=== PATIENT | female | born 1950 | race Caucasian/White ===

== ENCOUNTER → 2016-06-27 | Outpatient (CLI) | payer OTHER ==
[~2016-06-27] VITALS: Ht 170.2 cm; Wt 63.6 kg
[~2016-06-27] MED LIST: ADULT LOW DOSE81 MG PO; CALCIUM; CYMBALTA60 MG PO; HYDROCODON-ACE1 EAC8 PO; HYDROCODONE-AP1 EA11 PO; IBUPROFEN 200200 M1 PO; LO-DOSE ASPIRIN81 M1 PO; MOBIC15 MG PO; MULTIVITAMINS; NORCO 10-325 T1 EACH PO; NORCO 7.5-3251 EACH PO; PERCOCET 10-321 EAC1 PO; RED YEAST RICE600 MG PO; TIZANIDINE HCL 22 M1 PO; VITAMIN D1000 UNI1; VITAMIN E400 UNIT PO; VITCB500GO; XANAX 0.5 MG0.5 M1 PO; ZANAFLEX4 MG PO
--- NOTE | ~2016-06-27 | HPC ---
[facility] [place] [address] PAIN MANAGEMENT CONSULTATION Name: YANIRA PRAJAPATI Room #: REG KENY Robert.#: [id number] Admission: 06/27/16 Attend Phys: Junior No DO Discharge: Date of : 51 Report #: [id number] THIS REPORT FOR: //name// CC: Byron No HISTORY OF PRESENT ILLNESS: The patient is a 65-year-old female seen about 3 weeks ago, 06/06/2016. She has severe stenosis at L3-L4, related anterolisthesis at L4-L5, has degenerative changes and unfortunately she has a fairly large posterior right focal disc at L5-S1. This seems to be causing significant problems with acute exacerbation of radicular symptoms. The patient has an appointment to see Dr. Eduard Crenshaw at the end of this month. I had rotated from hydrocodone 7.5/325 taking two tablets b.i.d. to Percocet 10/325. The patient returns to pain clinic today noting this is really not efficacious. She is having insomnia and ongoing pain with this medication. She rates the pain at 10/10 primarily right leg, posterior aspect down to the foot. PHYSICAL EXAMINATION: Unchanged from last visit. A 65-year-old female, BMI is 22 kilograms per meter squared. Vital signs stable. Modestly antalgic gait, diffuse tenderness across the low back, posterior aspect of the right leg. Positive straight leg raise on the right with slight decreased plantar flexion strength. DIAGNOSTIC STUDIES: As noted above. ASSESSMENT: Symptomatic lumbar radiculopathy, acute exacerbation of radicular symptoms, history of cervical radiculopathy requiring complex medication management. RECOMMENDATIONS: We will rotate back to hydrocodone, use a 10/325 product, mandate only one tablet q. 4 hours as needed for pain. I have also taken the liberty of starting the patient on Lyrica 75 mg at bedtime, titrating up 125 mg bedtime and then adding 50 mg in morning with a target dose of 50 mg in the morning and 150 at night. Sample will be given to the patient sufficient to last this next 3-4 weeks. I will see her back at the end of the month. We will review consult from Dr. Crenshaw in consideration for therapeutic interventions. The patient was seen for moderately prolonged visit, recognizing significant medical concerns with complicated medication management. She was seen for approximately 25 minutes in total, 50% of this time was spent counseling the patient. <ELECTRONICALLY SIGNED> By: Junior No DO 07/01/16 0917 1703 [id number] Junior No DO /nt
[2016-06-27 14:23] VITALS: BP 110/61
== END ==
LOC: PAIN 07:21
DX: M54.16 Radiculopathy, lumbar region (principal); M48.06 Spinal stenosis, lumbar region; Z87.891 Personal history of nicotine dependence

== ENCOUNTER → 2017-02-06 | Outpatient (CLI) | payer OTHER ==
[~2017-02-06] VITALS: Ht 170.2 cm; Wt 66.5 kg
--- NOTE | ~2017-02-06 | HPC ---
[facility] [place] [address] PAIN MANAGEMENT CONSULTATION Name: YANIRA PRAJAPATI Room #: REG KENY JoaquinRadhaDonell#: [id number] Admission: 02/06/17 Attend Phys: Junior No DO Discharge: Date of : 51 Report #: [id number] THIS REPORT FOR: //name// CC: Byron No The patient is a very pleasant 66-year-old female. She had been seen for symptomatic lumbar radiculopathy, last seen 06/27/2016. We did a single injection at that time, wrote for hydrocodone and referred the patient to Dr. Eduard Crenshaw. She had a decompressive laminectomy July [address] [facility], unfortunately I can find no medical records of the same. The patient has expressed her similar frustration at lack of communication with records, etc. Nonetheless, she presents to the pain clinic today noting surgery was vastly successful. She had a significant improved range of motion. Right leg shows only nominal decreased hip flexion strength, range of motion is very good. Rates her pain as 6 on a VAS, but she is very tolerant with this. She notes pain is chronic in the right side with some cramping, but overall feels she is significantly more functional. She is weaned off of all opiate analgesics, does use tizanidine for some spasm, has stopped taking Meloxicam as well. PHYSICAL EXAMINATION: GENERAL: Shows 66-year-old female, BMI is 23 kilograms per meter squared. VITAL SIGNS: Stable. NEUROLOGIC: Alert and oriented to person, place and time, judged to be a reasonable historian. EXTREMITIES: Rises from chair easily. Gait is tandem. Lumbar flexion is good. Slight decreased right hip flexion, lower extremity extension strength, some diffuse tenderness in the low back. No discrete trigger was noted. ASSESSMENT: Symptomatic lumbar radiculopathy, now status post decompressive laminectomy, component of some myofascial pain and muscle spasm. RECOMMENDATION: 1. Continue range of motion course therapy and exercises. 2. I will write provide a prescription to the patient for tizanidine 4 mg to have 1-1/2 to one tablet 3 times a day as needed for spasm, dispense 75 tablets, 1 refill. Followup simply as needed. Thank you for allowing me to participate in the patient's care. We did spend a prolonged visit today primarily spent reviewing interval therapy and trying to peace together her surgical history. Unfortunately, again I got online to try and get Darnell's dictation, but I could not find it. I did text Dr. Eduard Crenshaw's nurse practitioner who has agreed to have the office faxed to us the surgical notes, which will at least be on the chart. [address] [address] PAIN MANAGEMENT CONSULTATION Name: YANIRA PRAJAPATI CHEO Room #: REG CL Kamini#: [id number] Admission: 02/06/17 Attend Phys: Junior No DO Discharge: Date of : 51 Report #: [id number] Discharged in good stable condition after approximately 25 minute visit spent reviewing interval medical history, physical exam, and counseling the patient. <ELECTRONICALLY SIGNED> By: Junior No DO 02/07/17 1225 1211 2039 Junior No DO /nt
[2017-02-06 09:55] VITALS: BP 124/80
== END ==
LOC: PAIN 06:54
DX: M54.16 Radiculopathy, lumbar region (principal); M62.838 Other muscle spasm

== ENCOUNTER → 2017-12-18 | Outpatient (CLI) | payer OTHER ==
[~2017-12-18] VITALS: Ht 170.2 cm; Wt 69.1 kg
[~2017-12-18] MED LIST changes: +AMOXICILLIN 50500 MG PO
--- NOTE | ~2017-12-18 | HPC ---
[facility] [place] [address] PAIN MANAGEMENT CONSULTATION Name: YANIRA PRAJAPATI Room #: REG KENY Jones.#: [id number] Admission: 12/18/17 Attend Phys: Junior No DO Discharge: Date of : 51 Report #: [id number] THIS REPORT FOR: //name// CC: Physician staff UDAY No The patient is a very pleasant 67-year-old female, prior treated for SI mediated pain and lumbar radiculopathy status post decompressive laminectomy. Last seen in pain clinic on 02/06/2017. At that time, the patient was doing a little bit better. She had a decompressive laminectomy in 07/2016. Radicular symptoms had improved. Somewhat lost to follow up. She returns to pain clinic today noting that new complaint of axial back pain has occurred without specific antecedent trauma and overuse. She rates it as a 6-7 on a VAS in the right hip, posterior buttock, exacerbated with standing, walking and bending. She has tried a Medrol Dosepak with only transient improvement of symptoms. Tizanidine, Meloxicam afforded some relief. She denies any radicular or myelopathic symptoms. PHYSICAL EXAMINATION: Shows a 67-year-old female, BMI is 23.9 kilograms per meter squared. Vital signs stable as noted in the ER on the electronic medical record. She is alert and oriented to person, place and time, judged to be a reasonable historian. Rises from chair using armrest, modestly antalgic gait. Very tender over the right SI joint. Lower extremity strength is symmetric. Straight leg raise is negative. Grossly positive Elvis test on the right. Positive Gaenslen test, positive pelvic distraction. ASSESSMENT: Symptomatic right sacroiliac joint dysfunction by clinical exam and history in a patient status post lumbar decompressive laminectomy. RECOMMENDATION: 1. Continue tizanidine and Meloxicam. She has only required prescription for tizanidine today. 2. Right SI joint injection under fluoroscopy. 3. Continue core strengthening. Follow up as needed. PROCEDURE: Right SI joint injection under fluoroscopy. PROCEDURE NOTE: After written informed consent was obtained, the patient was taken to fluoroscopy suite, placed in prone position. After sterile prep and drape, skin wheal was raised. A 22-gauge stylet needle was placed to contact the inferior aspect of the right SI joint. Negative aspiration was accomplished. 1 mL of Omnipaque was injected, which showed spread within the joints, followed with 40 mg triamcinolone, plus 2 mL of 0.5% preservative-free bupivacaine. Needle was removed. The area was cleansed, Band-Aid was applied. [address] [address] PAIN MANAGEMENT CONSULTATION Name: YANIRA PRAJAPATI Room #: REG KENY Suárez#: [id number] Admission: 12/18/17 Attend Phys: Junior No DO Discharge: Date of : 51 Report #: [id number] Fluoroscopy time was under 10 seconds. The patient was monitored for an appropriate period of time, discharged in good and stable condition. <ELECTRONICALLY SIGNED> By: Junior No DO 12/19/17 0715 1135 1518 Junior No DO /nt
[2017-12-18 09:49] VITALS: BP 117/85
== END ==
LOC: PAIN 07:05
DX: M53.3 Sacrococcygeal disorders, not elsewhere classified (principal); G89.29 Other chronic pain; M54.16 Radiculopathy, lumbar region; Z79.891 Long term (current) use of opiate analgesic; Z98.890 Other specified postprocedural states; Z79.899 Other long term (current) drug therapy; Z79.82 Long term (current) use of aspirin

== ENCOUNTER → 2017-12-25 | Outpatient (CLI) | payer OTHER ==
[~2017-12-25] VITALS: Ht 170.2 cm; Wt 67.3 kg
--- NOTE | ~2017-12-25 | HPC ---
[facility] [address] [place] [address] PAIN MANAGEMENT CONSULTATION Name: YANIRA PRAAJPATI Room #: REG KENY Robert.#: [id number] Admission: 12/25/17 Attend Phys: Junior No DO Discharge: Date of : 51 Report #: [id number] THIS REPORT FOR: //name// CC: Physician staff UDAY No The patient is a very pleasant 67-year-old female. She had been treated for symptomatic lumbar radiculopathy, status post 07/2016 L5-S1 hemilaminectomy. She has had a component of cervical spondylosis without myelopathy and axial back pain. We did a right SI joint injection at last visit (12/19/2015), with overall good improvement of the right low back pain. Unfortunately, she still has ongoing right L5 radicular pain. She notes she has been having a spasm in the right calf and foot which is actually waking her from sleep. PHYSICAL EXAMINATION: Shows a pleasant 67-year-old female, appearing younger than stated age. BMI is 23.2 kilograms per meter squared. Vital signs are stable as noted in the EMR. Rises from chair using armrest, modestly antalgic gait, positive straight leg raise on the right, negative Homans. Well-healed surgical scar compatible with prior surgery. ASSESSMENT: Symptomatic lumbar radiculopathy status post decompressive laminectomy with new right L5 radicular pain pattern. RECOMMENDATION: Right L5-S1 transforaminal epidural injection under fluoroscopy today, continue baseline medication including tizanidine for spasm, Meloxicam 15 mg 1 a day. PROCEDURE: Right L5-S1 transforaminal epidural injection under fluoroscopy. PROCEDURE NOTE: After both written and informed consent was obtained including risk of spinal cord damage, infection, increased pain and paralysis, the patient agreed to proceed. The patient was taken to the fluoroscopy suite, placed in a prone position with appropriate abdominal bolstering. After sterile prep with ChloraPrep and sterile drape, a skin wheal with 1% Xylocaine was raised. A 22 gauge 4-1/2 inch epidural Tuohy needle was inserted. From an oblique approach into the posterior-superior aspect of the right L5-S1 neural foramen with continuous pressure on the glass syringe plunger for loss of resistance. Glass syringe was filled with 2 cc of 0.1 Xylocaine. The glass loss of resistance syringe was removed. A low volume extension tubing was connected, negative aspiration was accomplished for cerebrospinal fluid or blood. 1 mL of Omnipaque was injected which showed spread both within the epidural space and laterally along the nerve root. This was followed with 80 mg of triamcinolone plus 1 mL of 1.5% preservative-free Xylocaine. Needle was partially withdrawn, 0.5 mL of Xylocaine was injected to clear the needle and the needle was removed. The [address] [address] PAIN MANAGEMENT CONSULTATION Name: YANIRA PRAJAPATI CHEO Room #: REG [facility] Robert.#: [id number] Admission: 12/25/17 Attend Phys: Junior No DO Discharge: Date of : 51 Report #: [id number] was cleansed, band-aid was applied. The patient was allowed to ambulate to the recovery room, discharged in good and stable condition. <ELECTRONICALLY SIGNED> By: Junior No DO 12/26/17 0829 1537 1817 Junior No DO /nt
[2017-12-25 12:42] VITALS: BP 132/80
== END | disposition home or self-care (01) ==
LOC: PAIN 08:30
DX: M54.16 Radiculopathy, lumbar region (principal); Z98.890 Other specified postprocedural states; Z87.891 Personal history of nicotine dependence

== ENCOUNTER → 2018-01-27 | Outpatient (CLI) | payer OTHER ==
[~2018-01-27] VITALS: Ht 170.2 cm; Wt 67.6 kg
--- NOTE | ~2018-01-27 | HPC ---
[facility] [place] [address] PAIN MANAGEMENT CONSULTATION Name: YANIRA PRAJAPATI Room #: REG KENY Jones.#: [id number] Admission: 01/27/18 Attend Phys: Mihai No DO Discharge: Date of : 51 Report #: [id number] THIS REPORT FOR: //name// CC: Mihai No Physician staff UDAY Bagley DATE OF SERVICE: 01/27/2018 REFERRING PHYSICIAN: Uday Bagley CHIEF COMPLAINT: Low back pain, left lower extremity pain and paresthesias. HISTORY OF PRESENT ILLNESS: As you know, the patient is a very pleasant 67-year-old female who has returned today in followup visit with pain levels of 0/10. States the pain is chronic in sensation. Describes pain as cramping and intermittent in its presentation. She states her pain spontaneously exacerbates typically when working out and crossing her legs, improves with medications, stretching, repositioning, Biofreeze and epidural injections. She was last seen in our clinic on 12/18/2017 and then again on 12/25/2017 where she underwent a right L5-S1 transforaminal epidural injection. She reports some improvement in symptoms. She states she had an acute exacerbation of symptoms that occurred last week, but has now resolved. Her pain is now at level 0/10. She states she has changed no medications, had no treatments, just spontaneous resolution. She returns today to discuss treatment options if her pain does return. ALLERGIES: No known drug allergies. CURRENT MEDICATIONS: Tizanidine 4 mg q. 8 hours p.r.n., red yeast rice extract 600 mg once a day and calcium carbonate 1 tab per day. SOCIAL HISTORY: The patient denies tobacco, alcohol, IV or illicit drug use. She is unaccompanied today. IMAGING: There is no new imaging available. PHYSICAL EXAMINATION: VITAL SIGNS: Blood pressure 104/71, pulse 89, respiratory rate 14 and unlabored. The patient is 100% on room air. Height 5 feet 7 inches tall, weight 149 pounds and BMI calculated 23.3. GENERAL: Well-developed, well-nourished, well-hydrated 67-year-old female, appearing her stated age. She is placing current pain score 0/10. HEENT: Normocephalic and atraumatic. Pupils are equal, round and reactive to light. EXTREMITIES: Show no clubbing, no cyanosis and no edema. [facility] [address] [place] [address] PAIN MANAGEMENT CONSULTATION Name: YANIRA PRAJAPATI Room #: REG [facility]#: [id number] Admission: 01/27/18 Attend Phys: Mihai No DO Discharge: Date of : 51 Report #: [id number] MUSCULOSKELETAL: Seated straight leg raising is negative. Supine straight leg raising is mildly positive on the right. Elvis's test is negative. Modified Gaenslen's positive for axial low back pain. Ankle clonus is negative. Babinski is negative. Muscle bulk and tone equal and symmetrical in the lower extremities. ASSESSMENT: 1. Symptomatic lumbar radiculopathy. 2. Displacement of lumbar intervertebral disk with radiculopathy. 3. Lumbosacral spondylosis with radiculopathy. 4. Central canal stenosis of the lumbar spine. 5. Neural foraminal stenosis of the lumbar spine. 6. Facet arthropathy of the lumbar spine. 7. Chronic intractable pain. PLAN: 1. The patient returns today in followup visit indicating an acute exacerbation of symptoms that occurred last week. Unfortunately, her symptoms presented acutely and intensely. She made today's appointment to be evaluated and fortunately her symptoms have resolved. This began on Friday where she awoke with no pain. This has remained the same since that day. The patient returns today in followup visit to discuss treatment options if her pain does intensify or return. Following was discussed with the patient in regards to treatment options for lumbar radiculopathy, status post L5-S1 hemilaminectomy. We discussed physical therapy, stretching exercises and core strengthening. 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 I do not think any changes in her exercise program need to be addressed at this visit. We discussed medication management initiating neuropathic pain medications and consistent nonsteroidal anti-inflammatory, this in conjunction with her current tizanidine dosing. We discussed repeating epidural injection under fluoroscopic guidance to address pain if her symptoms do return. We also discussed a spinal cord stimulator and surgical options. The patient is amenable to all suggestions and options and will contact our clinic if her pain does return to address one of these treatment options. 2. We will see the patient back in followup visit on an as needed basis for possible next in the series of epidural injections and discuss other options as indicated above. <ELECTRONICALLY SIGNED> By: Mihai No DO 01/28/18 0838 1244 0028 Mihai No DO /nt
[2018-01-27 08:41] VITALS: BP 104/71
== END ==
LOC: PAIN 07:02
DX: M47.27 Other spondylosis with radiculopathy, lumbosacral region (principal); M51.16 Intervertebral disc disorders with radiculopathy, lumbar region; G89.4 Chronic pain syndrome; M48.062 Spinal stenosis, lumbar region with neurogenic claudication; M12.88 Other specific arthropathies, not elsewhere classified, other specified site

== ENCOUNTER → 2020-02-08 | Outpatient (CLI) | payer OTHER ==
[~2020-02-08] VITALS: Ht 167.6 cm; Wt 68.9 kg
[~2020-02-08] MED LIST changes: +TIZANIDINE4 MG/1 TA1 PO
[2020-02-08 09:50] VITALS: BP 96/66
--- NOTE | 2020-02-08 10:12 | NUR ---
Pain Clinic Assessment: 1. History of Osteoarthritis: RIGHT HIP History of Rheumatoid Arthritis: DENIES 2. Height: 5 ft. 6 in. 167.6 cm. Weight: 152.0 lb. oz. 68.947 kg. Patient's BMI: 24.5 3. Vital Signs: BP: 96/66 Pulse: 68 Resp: 14 Temp: 02 Sat: 98 ECG Mon: 4. Pain Intensity: 0-1 5. Fall Risk: Dizziness: N Needs help standing or walking: N Fallen in the last 3 months: N Fall risk comments: 6. Patient on Blood Thinner: None 7. History of Hypertension: N 8. Opioid Therapy greater than 6 weeks: N Opiate Contract Signed: 12/14/15 9. Risk Assessment Tool Provided: Opioid Risk Tool 10. Functional Assessment Tool: 11. Recreational Drug Use: Never Drug Type: Tobacco Use: Former Smoker Tobacco Type: Amount or Packs/day: How Many Years: Alcohol Use: Yes Frequency: Daily Quant: WINE
--- NOTE | 2020-02-08 14:22 | HPC ---
[facility] [place] [address] PAIN MANAGEMENT CONSULTATION Name: YANIRA PRAJPAATI Room #: REG KENY Jones.#: [id number] Admission: 02/08/20 Attend Phys: Mihai No DO Discharge: Date of : 51 Report #: [id number] THIS REPORT FOR: cc: UDAY BAGLEY MD, STACY C. MD Johnson, James E. DO ~ DATE OF SERVICE: 02/08/2020 REFERRING PHYSICIAN: Dr. Uday Bagley. CHIEF COMPLAINT: Low back pain, bilateral lower extremity pain. HISTORY OF PRESENT ILLNESS: As you know, the patient is a very pleasant 69-year-old female who has returned today in followup visit reporting pain as a 0-1/10. Apparently about 2 weeks ago, she had instantaneous increase in low back pain, bilateral lower extremity pain. The patient has plans to undergo MRI of the lumbar spine later today per the request of her PCP. She comes to us with x-ray imaging of the low back, which shows changes at the L3-L4 level, L4-L5 and L5-S1 with spondylolisthesis at L3-4 and advanced multilevel facet arthropathy at L4-5 and L5-S1. X-rays of the pelvis show normal hip findings in the right hip, negative for any significant arthritic changes. The patient reports a spontaneous improvement in overall pain over the past couple of days after she made her appointment with our clinic. She returns today in followup visit to discuss this recurrent pain and the x-ray findings. The patient denies injury or trauma that may have led to symptom development. ALLERGIES: No known drug allergies. CURRENT MEDICATIONS: Tizanidine 4 mg p.r.n. pain. SOCIAL HISTORY: The patient denies tobacco, alcohol, IV or illicit drug use. She is unaccompanied at today's visit. IMAGING: No new imaging available. PHYSICAL EXAMINATION: VITAL SIGNS: Blood pressure 96/66, pulse 68, respiratory rate 14 and unlabored. The patient is 98% on room air. Height 5 feet 6 inches tall, weight 152 pounds, BMI calculated 24.5. GENERAL: Well-developed, well-nourished, well-hydrated 69-year-old female, appearing her stated age. She is in no acute distress, awake, alert and oriented x 3. Current pain score 0-1/10. HEENT: Normocephalic, atraumatic. Pupils equal, round and reactive. Extraocular muscles are intact. Speech fluent. EXTREMITIES: Show no clubbing, no cyanosis[place] [address] PAIN MANAGEMENT CONSULTATION Name: YANIRA PRAJAPATI Room #: [facility].#: [id number] Admission: 02/08/20 Attend Phys: Mihai No DO Discharge: Date of : 51 Report #: [id number] MUSCULOSKELETAL: Lower extremity strength equal and symmetrical 5/5, intact to light touch from L1 through S2 dermatomes. Seated straight leg raising negative. Supine straight leg raising is negative at this time. Elvis's test is negative. Modified Gaenslen's positive for axial low back pain. Ankle clonus negative. Babinski is negative. ASSESSMENT: 1. Lumbar radiculopathy. 2. Displacement of lumbar intervertebral disk with radiculopathy. 3. Central canal stenosis of lumbar spine. 4. Neural foraminal stenosis of lumbar spine. 5. Facet arthropathy of the lumbar spine. 6. Chronic intractable pain. PLAN: 1. The patient returns today in followup visit having recurrence of low back pain, bilateral lower extremity pain consistent with spinal stenosis. The patient does carry the diagnosis of spinal stenosis from prior imaging studies. She reports spontaneous resolution of symptoms a couple of days ago. She kept today's appointment to discuss options for treatment if the symptoms do return. Based on the distribution the patient is describing the descriptors she uses in regards to pain, it would appear to be that she has suffered from recurrence of her central canal stenosis, radicular pain. The patient has plans to undergo MRI later today and wishes to delay interventional treatments until that imaging has been completed. 2. We have requested the patient provide us with a release of information, so we can obtain the results from the MRI scheduled for tonight. Once we have a chance to review this information, we will contact the patient to advice of the findings and whether or not interventional treatments may be recommended. The patient is agreeable with this plan. She has signed the release of information to our clinic to be available, hopefully later today or tomorrow with the results of the MRI to be obtained this evening. 3. No medication changes made at today's visit. The patient will continue current medical therapy as previously prescribed. 4. We will contact the patient once the MRI has been completed to review those findings with the patient. We did spend time today reviewing her distribution of symptoms and correlating it to the MRI imaging from 2016 in conjunction with the x-ray findings that she brought with us obtained a couple of weeks ago. It would appear that the symptoms she is experiencing is from the L3-4 level, though there is a likely contribution from the 4-5 and L5-S1 that cannot be fully elucidated under the x-ray imaging, MRI would be necessary. Once this is available, we will contact the patient with those findings. <ELECTRONICALLY SIGNED> By: Mihai No DO 02/08/20 1422 1247 1348 Mihai No DO /nt
== END ==
LOC: PAIN 06:42
PROVIDERS: ATTEND Anesthesiology Pain Medicine
DX: M51.16 Intervertebral disc disorders with radiculopathy, lumbar region (principal); G89.4 Chronic pain syndrome